=== PATIENT | male | born 1960 | race Caucasian/White ===

== ENCOUNTER 2022-09-01 15:25 | Outpatient (CLI) | payer BC, SELFPAY ==
--- NOTE | ~2022-09-01 | MR_ITS ---
EXAMINATION: MR shoulder LT wo con DATE: 09/01/2022 16:36 INDICATION: Left shoulder pain. TECHNIQUE: Magnetic resonance imaging (MRI) of the left shoulder was performed without intravenous co ntrast. Sequences included axial PD-weighted FS FSE, coronal oblique PD-weighted FS FSE and T2-weight ed FS FSE, and sagittal oblique T2-weighted FS FSE and T1-weighted FSE. COMPARISON: Left shoulder radiographs 08/10/2022 FINDINGS: Coracoacromial arch: The acromion undersurface is curved in morphology (type II). There is severe acromioclavicular joint osteoarthritis. There is mild subacromial/subdeltoid bursitis. Rotator cuff: There is moderate supraspinatus and infraspinatus tendinopathy. Teres minor tendon is normal. There i s severe subscapularis tendinopathy. No tear. There is mild fatty atrophy in infraspinatus muscle bel ly. Biceps tendon and glenoid labrum: Biceps tendon is in bicipital groove. There is severe tendinopathy and near full-thickness tear of bi ceps tendon. There is a tear of the glenoid labrum from 9:00 to 2:00 (SLAP tear). Fluid: There is a small glenohumeral joint effusion. Bones/cartilage: There is cartilage surface irregularity of glenoid and humeral head. There are tiny osteophytes. IMPRESSION: 1. Severe tendinopathy and near full-thickness tear of biceps tendon. 2. Severe rotator cuff tendinopathy. No tear. 3. Mild glenohumeral joint chondrosis. SLAP tear. 4. Mild subacromial/subdeltoid bursitis. 5. Small glenohumeral joint effusion. 6. Severe acromioclavicular joint osteoarthritis. Reviewed, dictated and finalized at location A.
== END 2022-09-01 15:26 ==
LOC: MICIMG 15:28
PROVIDERS: PCP Nurse Practitioner Family; Visit Provider Nurse Practitioner Family
DX: M19.012 Primary osteoarthritis, left shoulder (principal); M25.412 Effusion, left shoulder
CPT/HCPCS: 73221

== ENCOUNTER 2025-02-08 10:57 | Emergency (ER) | payer BC, SELFPAY ==
[2025-02-08 10:59] VITALS: BP 140/82; PULSE 64; RESP 18; TEMP 36.6; O2SAT 98
--- OUTSIDE RECORDS SUMMARY | 2025-02-08 13:27 | XMS_ITS | Clinical Summary ---
Author Organization [facility] Address [address] [place] [address] Care Team Providers Care Alcohol And Drug Counselor Name Role Phone Consuelo Alfred Primary Care Provider [phone] Allergies Active Allergy Reactions Criticality Noted Date Comments Prednisone Agitation,Other (See comments) High 05/17 Anger Medications aspirin 81 mg chewable tabletIndication s:Deep Vein Thrombosis Prevention Take 1 tablet (81 mg total) by mouth 2 (two) times a day 60 tablet 06/10/2020 Active Active Problems Problem Noted Date Diagnosed Date Acute pain of right knee 02/19/2020 Primary osteoarthritis of right knee 02/19/2020 Effusion of right knee 02/19/2020 Actinic keratosis 01/16/2014 Surgical History Surgery Date Site/Laterality Comments KNEE ARTHROSCOPY ORAL SURGERY JOINT REPLACEMENT June 10 2020 Medical History Medical History Date Comments Arthritis Psoriasis Social History Tobacco Use Types Packs/Day Years Used Date Smoking Tobacco: Former Cigarettes Q uit: 05/17/1984 Smokeless Tobacco: Never Tobacco Cessation:Counseling Given: Not Answered AUDIT-C Answer Date Recorded Q1: How often do you have a drink containing alc ohol? 2-4 times a month 06/10/2020 Average Number of Drinks Not on file 021 Frequency of Binge Drinking Not on file 05/21 Sex and Gender Information Value Date Recorded Sex Assigned at Not on file Legal Sex Male 4:32 AM DIRECTOR TECHNICAL Gender Identity Male 05/27/2020 1:39 PM DIRECTOR TECHNICAL Sexual Orientation Not on file Last Filed Vital Signs Vital Sign Reading Time Taken Comments Blood Pressure 122/68 06/10/2020 3:12 PM CDT Pulse 58 06/10/2020 3:12 PM CDT Temperature 36.4 C (97.5 F) 06/10/2020 3:12 PM CDT Respiratory Rate 16 06/10/2020 3:12 PM CDT Oxygen Saturation 99% 06/10/2020 3:12 PM CDT Inhaled Oxygen Concentration - - Weight 105.2 kg (232 lb) 01/01/2023 7:35 AM CDT Height 176.5 cm (5' 9.5) 01/01/2023 7:35 AM CDT Body Mass Index 33.77 01/01/2023 7:35 AM CDT Plan of Treatment Health Maintenance Due Date Last Done Comments Colon Cancer Screening-Colonoscopy 1959 Depression Screening 1960 Hepatitis C Screening 1960 Prostate Cancer Screening-PSA 1959 DTaP/Tdap/Td Vaccine (1 - Tdap) 12/09/1970 Hepatitis B Screening 12/09/1977 Pneumococcal vaccine 65+ (1 of 1 - PCV) 12/09/2009 Zoster Vaccine (1 of 2) 12/09/2009 Fall Risk Assessment 06/10/2021 06/10/2020 Influenza Vaccine (#1) 2024 Abdominal Aortic Aneurysm (AAA) Screen 12/09/2024 Well Visit 65+ 12/09/2024 Medical Devices Implanted Type Area Surveyor Instrument Assistant Device Identifier Shelf Expiration Date Model / Serial / Lot [employer] [id number] Persona 2 Peg Knee Right H Baseplate Tibial Trabecular Metal - [id number] Implanted:Qty: 1 on 06/10/2020 by Agustín Alvarado MD at [facility] Right: Knee [employer] [id number] 09/18/2029 [id number] / / [id number] [employer] [id number] Persona Cruciate Retain Knee Right 12 Standard Component Femoral - [id number] Implanted:Qty: 1 on 06/10/2020 by Agustín Alvarado MD at [facility] Right: Knee [employer] [id number] 21 04/10/2030 [id number] / / [id number] [employer] [id number] Persona 12mm Cruciate Retain Knee Right 12 Gh Insert Articular Latex Free - [id number] Implanted:Qty: 1 on 06/10/2020 by Agustín Alvarado MD at [facility] Right: Knee [employer] [id number] 02/18/2023 [id number] / / [id number] Insurance BLUE ACC CHOICE OOS [employer] OOS BLUE ACC CHOICE OOS WORKERS COMPENSATION GENERIC Advance Directives For more information, please contact: [phone] * Full Code (Latest Code Status on File) Date Activated Date Inactivated Comments 06/10/2020 12:59 PM 06/10/2020 10:58 PM Care Teams Alcohol And Drug Counselor Relationship Specialty Start Date End Date Consuelo Alfred PA [address] [place] [id number] PCP - General Physician Change Management Specialist 01/01/23
[2025-02-08] MEDS: HYDROcodone/acetaminophen (*CRX) 5-325 MG TABLET 1 TAB PO (14:14)
[2025-02-08] MEDS: TETANUS,DIPHTHERIA,AC PERTUSSIS ADULT (0.5 ML) BOOSTRIX IM (14:14)
--- NOTE | 2025-02-08 14:56 | ED.GENADULT ---
HPI - General Adult General Chief complaint: Animal Bite Stated complaint: dog bite Time Seen by Provider: 02/08/25 13:36 History of Present Illness HPI narrative: 64-year-old male present to the emergency department for evaluation for dog bite to the right arm. Patient is unsure of the dog's shots are up-to-date but the dog is known to the patient. Patient's tetanus was not up-to-date. Patient states that the pit bull bit his jacket but the tooth did not penetrate the check it but he did get a tear to the right forearm Related Data Home Medications ?Medication ?Instructions ?Recorded ?Confirmed ?Last Taken ?Type multivitamin 1 tablet PO DAILY 08/10/22 Unknown History Allergies Allergy/AdvReac Type Severity Reaction Status Date / Time celecoxib (From Celebrex) Allergy Intermediate Dyspnea / Verified 02/08/25 10:59 SOB moxifloxacin Allergy Unknown Confusion Verified 02/08/25 10:59 prednisone AdvReac aggitation Verified 02/08/25 10:59 muscle relaxers AdvReac Severe Drowsy Uncoded 08/10/22 14:35 Review of Systems Review of Systems: All systems reviewed & are unremarkable except as noted in HPI and below PMFSH Past Medical History Medical History Knee pain Surgical History Surgical History H/O arthroscopic knee surgery Social History Social History Years smoked: 5 Smoking status: Former smoker Alcohol intake: current Drinks per week: 4 Substance use: never Substance use type: does not use Living arrangements: with family Occupation/Education: occupation 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 HEAD: normocephalic, atraumatic. EYES: PERRLA/EOMI, conjunctivae clear. NOSE: Normal no drainage EARS:TMS clear with good light reflex. THROAT: Pharynx clear, no exudate. NECK: Supple. No adenopathy, no masses. RESPIRATORY: Airway patent, respirations nonlabored. Clear to auscultation bilaterally, no rales, rhonchi, wheezing. CARDIOVASCULAR: Regular rate and rhythm without murmurs rubs or gallops. ABDOMINAL: Soft, nontender, nondistended, normal bowel sounds MUSCULOSKELETAL: Moves all extremities. Strength/ROM intact, No edema, No calf tenderness. NEURO: Alert. Cranial nerves II through XII intact. Good gait. Good coordination SKIN: Laceration to right forearm PSYCHIATRIC: Normal affect/mood. Course Vital Signs Vital signs: Vital Signs Temperature 97.9 F 02/08/25 10:59 Pulse Rate 64 02/08/25 10:59 Respiratory Rate 18 02/08/25 10:59 Blood Pressure 140/82 02/08/25 10:59 Pulse Oximetry 98 02/08/25 10:59 Oxygen Delivery Room Air 02/08/25 10:59 Temperature 97.9 F 02/08/25 10:59 Pulse Rate 56 L 02/08/25 15:23 Respiratory Rate 18 02/08/25 15:23 Blood Pressure 141/82 H 02/08/25 15:23 Pulse Oximetry 98 02/08/25 15:23 Oxygen Delivery Room Air 02/08/25 10:59 Procedures Laceration Laceration 1: Time: 15:04 Site: upper extremity Side (If applicable): right Size (cm): 4 Description: linear and irregular Depth: simple, single layer Local Anesthetic: lidocaine 1% Amount of anesthesia used (mL): 3 Pre-repair: wound explored, irrigated and irrigated extensively ====== Skin Level ====== Skin layer closed with: prolene Size (cm): 4-0 Number of sutures: 4 Technique: simple, interrupted ====== Subcutaneous Layer ====== ====== Muscle Layer ====== ====== Tendon Layer ====== Medical Decision Making MDM Narrative Medical decision making narrative: Patient's tetanus was updated in the emergency department. Laceration was repaired as described. Patient was started on antibiotics emergency department. Patient was encouraged close follow-up with his primary care physician. All questions concerns were addressed. Low concern for tendon or ligament injury. Differential Diagnosis Differential Diagnosis: Skin tear, laceration, ligament injury, tendon injury Vital Signs Vital Signs: Vital Signs Temperature 97.9 F 02/08/25 10:59 Pulse Rate 64 02/08/25 10:59 Respiratory Rate 18 02/08/25 10:59 Blood Pressure 140/82 02/08/25 10:59 Pulse Oximetry 98 02/08/25 10:59 Oxygen Delivery Room Air 02/08/25 10:59 Temperature 97.9 F 02/08/25 10:59 Pulse Rate 56 L 02/08/25 15:23 Respiratory Rate 18 02/08/25 15:23 Blood Pressure 141/82 H 02/08/25 15:23 Pulse Oximetry 98 02/08/25 15:23 Oxygen Delivery Room Air 02/08/25 10:59 Discharge Plan Discharge Clinical Impression: Dog bite Patient Disposition: Home Condition: Stable Instructions: Antibiotic Form, Animal Bite (ED), Care For Your Stitches (ED) Additional Instructions: Antibiotic as directed until completed. Sutures will need to be removed an 7-10 days. Have close follow-up with your primary care physician for a wound check. If you have any worsening symptoms then please call or return to the emergency department. Patient Language: French Prescriptions: New amoxicillin-pot clavulanate 875-125 mg tablet 1 tablet PO Q12H 7 Days Qty: 14 0RF No Action multivitamin Tablet 1 tablet PO DAILY Follow-up/Referrals: Nathaly Hernandez, WILLIE [Primary Care Provider, Family Practice]
[2025-02-08 15:23] VITALS: BP 141/82; PULSE 56; RESP 18; O2SAT 98
== END 2025-02-08 15:23 | disposition home or self-care (01) ==
PROVIDERS: Emergency Provider Emergency Medicine; PCP Nurse Practitioner Family
DX: S51.851A Open bite of right forearm, initial encounter (principal); Z23 Encounter for immunization; Z87.891 Personal history of nicotine dependence; W54.0XXA Bitten by dog, initial encounter
CPT/HCPCS: 12002; 90471; 90715; 99283; A9270